=== PATIENT | female | born 1940 | race Caucasian/White ===

== ENCOUNTER 2016-09-09 13:27 | Inpatient (IN) ==
[2016-09-09] MEDS ORDERED: SODIUM CHLORIDE 0.9% 500 ML IV STA (14:13)
[2016-09-09] MEDS ORDERED: ONDANSETRON 4 MG/2 ML VIAL IV STA (14:13)
[2016-09-09 14:21] LABS: Basophils % 0.1 % (0.0-0.8); Eosinophils # 0.1 10*3/uL (0.0-0.87); Hematocrit 35.9 VOL% (35.7-47.0); Hemoglobin 11.6 GM/DL (12.0-16.0); Immature Granulocytes % 0.5 %; Immature Granulocytes Absolute 0.04 #; Lymphocytes # 1.2 10*3/uL (1.4-4.0); Lymphocytes % 14.5 % (21.3-54.2); Mean Corpuscular HGB Conc 32.3 GM/DL (32-36); Mean Corpuscular Hemoglobin 27 PG (27-34); Mean Platelet Volume 10.5 FL (9.6-12.0); Monocytes # 0.5 10*3/uL (0.11-0.8); Monocytes % 5.9 % (1.7-12.7); Neutrophils # 6.4 10*3/uL (1.4-7.4); Platelet Count 322 T/CUMM (130-400); Red Blood Count 4.38 MC/CUMM (3.8-5.5); Red Cell Distribution Width 15.8 % (9.3-17.3); White Blood Count 8.2 T/CUMM (4-12)
[2016-09-09 14:41] LABS: Albumin 3.9 G/DL (3.4-5.0); Bilirubin,Total 0.5 MG/DL (0.2-1.0); Calcium 9.8 MG/DL (8.5-10.1); Magnesium 2.4 MG/DL (1.8-2.4); Osmolality,Calculated 272.2 MOS/KG (273-304); Potassium 4.2 MMOL/L (3.5-5.1)
--- NOTE | 2016-09-09 14:57 | XRay Report ---
XR chest 1V portable Indication: SOB/abdominal pain Comparison: Chest x-ray dated April 28, 2016 Technique: Single frontal view of the chest Findings: Heart size appears within normal limits. Chronic change of the lungs without focal consolidation, pleural effusion, or pneumothorax. Mild bibasilar scarring. Osseous and surrounding soft tissue structures appear grossly unchanged. Surgical clips within the neck base. Diffuse osteopenia. IMPRESSION: No acute cardiopulmonary process demonstrated. PROCEDURE INTERPRETED AT [facility] DEPARTMENT OF RADIOLOGY Final Report Signed by: Dr Jack Francisco
[2016-09-09] MEDS ORDERED: ONDANSETRON 4 MG/2 ML VIAL ONE (14:59)
--- NOTE | 2016-09-09 15:01 | Emergency Department Note ---
Arpita Mahajan Hilary, am scribing for, and in the presence of, Jp Carvalho MD 14:16. Maia Mahajan Phillip K, MD, personally performed the services described in this documentation, ascribed by Yolanda Palm in my presence, and it is both accurate and complete [id number] . Arrival - Arrival Chief Complaint: Abdominal / Flank Pain Stated Complaint: SBO referred by Dr White/has chol bag ED Nursing Triage Note: Abd pain with nausea and vomiting onset x 4 days - pt states that she has a colostomy - per Dr Brown x 6 years ago Mode of Arrival: Ambulatory Limitations: No Limitations Source: Patient, RN Notes Reviewed Time Seen by Provider: 09/09/16 13:56 - History of Present Illness HPI Narrative: Pt is a 75 y/o white female presenting to the ED with c/o abdominal pain which onset 4 days ago. Pt states that she started throwing up 2 days ago with the presence of bile. Pt confirms nausea, vomiting, abdominal pain and cough but denies fever or normal appetite. Pt has a PMHx of colon CA, and HTN. No other complaints or problems stated in the ED. Onset (ago): day(s) Severity: moderate Severity scale (1-10): 4 Quality: cramping Date of Last Menstrual Period: slade Allergies/Adverse Reactions: Allergies Allergy/AdvReac Type Severity Reaction Status Date / Time No Known Allergies Allergy Verified 04/28/16 15:59 Home Medications: Home Medications Medication Instructions Recorded Confirmed Type Levothyroxine Tab [Synthroid Tab] 25 mcg PO DAILY@0700 04/28/16 09/09/16 History Losartan [Cozaar] 50 mg PO QAM 04/28/16 09/09/16 History Omeprazole 20 mg PO QAM 04/28/16 09/09/16 History Solifenacin [Vesicare] 5 mg PO QAM 04/28/16 09/09/16 History levETIRAcetam [Levetiracetam] 250 mg PO QAM 04/28/16 09/09/16 History Fluticasone 50 Mcg Nasal [place] 1 spray BOTH NARES DAILY 09/09/16 09/09/16 History [Flonase Nasal [place]] Levocetirizine Dihydrochloride 5 mg PO QAM 09/09/16 09/09/16 History Review of System - Review of System 12 point system: reviewed and no additional remarkable complaints except as stated - Review of System Constitutional: Absent: fever Respiratory: Present: cough Cardiovascular: Absent: chest pain Gastrointestinal: Present: abdominal pain, nausea, vomiting Medical,Surgical,& Family Hx - Medical History Cardio: History of: Hypertension Respiratory: History of: Bronchitis Gastrointestinal: History of: Gastrointestinal Cancer (colon ca-remission) - Surgical History Abdominal Surgeries: Surgical HX of: Abdominal Surgery (colectomy--colostomy) - Social History Smoking Status: Never smoker Frequency of Alcohol Use: None Type of Drug Use: None Exam Vital Signs: Vital Signs Temperature 98.1 F 09/09/16 13:37 Pulse Rate 109 H 09/09/16 13:37 Respiratory Rate 20 09/09/16 13:37 Blood Pressure 107/87 09/09/16 13:37 O2 Sat by Pulse Oximetry 96 09/09/16 13:37 - General General appearance: alert, in no apparent distress - Head Head exam: Present: atraumatic, normocephalic - Eye Eye exam: Present: normal appearance, PERRL, EOMI - ENT ENT exam: Present: mucous membranes moist, TM's normal bilaterally. Absent: mucous membranes dry - Neck Neck exam: Present: full ROM, trachea midline. Absent: tenderness - Chest Chest inspection: Present: symmetric chest wall rise. Absent: tenderness - Respiratory Respiratory exam: Present: rales (bibasilar rales) - Cardiovascular Cardiovascular exam: Present: normal rhythm, tachycardia, normal heart sounds - Abdominal Exam Abdominal exam: Present: soft, tenderness (generalized pain. Colostomy in rt lower quadrant). Absent: distention, normal bowel sounds (no bowel sounds) - Extremities Exam Extremities exam: Present: full ROM. Absent: tenderness - Back Exam Back exam: Present: full ROM. Absent: tenderness - Neurological Exam Neurological exam: Present: alert, oriented X3, CN II-XII intact. Absent: motor sensory deficit - Psychiatric Psychiatric exam: Present: normal affect, normal mood - Skin Skin exam: Present: warm, dry, intact, normal color. Absent: rash Course Course Narrative: Patient discussed with Dr. Brown who will evaluate in the ED. Results - Labs CBC & BMP: 09/09/16 14:05 09/09/16 14:05 Lab Results: I have reviewed the patients labs Labs: Laboratory Tests 09/09/16 14:05 WBC 8.2 RBC 4.38 Hgb 11.6 L Hct 35.9 MCV 82.0 L Neut % (Auto) 78.0 H Lymph % (Auto) 14.5 L Lymph # (Auto) 1.2 L Laboratory Tests 09/09/16 14:05 Sodium 134 L Potassium 4.2 Chloride 101 Carbon Dioxide 25 BUN 25 H Creatinine 1.60 H Glucose 113 H Calculated Osmolality 272.2 L Total Protein 9.0 H Globulin 5.1 H Albumin/Globulin Ratio 0.7 L - Diagnostic Findings Procedure: Chest x-ray: report reviewed by me (No acute cardiopulmonary process demonstrated.), CT: report reviewed by me (CT abdomen shows small bowel obstruction.) Disposition Clinical Impression: Small bowel obstruction Case discussed with: patient Disposition: Still a Patient Condition: Guarded Additional Instructions: Admit to Dr. Brown .
--- NOTE | 2016-09-09 15:12 | EKG Report ---
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
--- NOTE | 2016-09-09 15:22 | General Surg History&Physical ---
Assessment and Plan - Time spent with patient Time spent with patient: Greater than 30 minutes (1) Small bowel obstruction Status: Acute Assessment and plan: This is most likely secondary to adhesions but could be related to her previous colon cancer. She had an advanced colon cancer that was completely resected in 2011 and as far as I know has not had any adjuvant treatment following this. She does not have any signs to specifically suggest recurrent cancer and this is not obvious on CT scan. I can check a CEA level. I discussed initial nonoperative treatment with nasogastric suction. I do not see evidence of bowel compromise or ischemia at this point. I explained that if she fails to respond to nonoperative treatment and she may require laparotomy. Current Visit: Yes History of Present Illness Chief complaint: Abdominal pain History of present illness: Ms. Hart is a 75 year old female Who for several days has had increasing abdominal pain and distention and nausea and vomiting. This pain is intermittent and cramping and not really localized to one location in her abdomen. She does not know of any aggravating or alleviating factors. She had an abdominal CT scan ordered by Dr. Wells today as an outpatient which showed a small bowel obstruction. She has had extensive abdominal surgery and history of advanced colon cancer resected in 2012 Home Medications Medication Instructions Recorded Confirmed Type Levothyroxine Tab [Synthroid Tab] 25 mcg PO DAILY@0700 04/28/16 09/09/16 History Losartan [Cozaar] 50 mg PO QAM 04/28/16 09/09/16 History Omeprazole 20 mg PO QAM 04/28/16 09/09/16 History Solifenacin [Vesicare] 5 mg PO QAM 04/28/16 09/09/16 History levETIRAcetam [Levetiracetam] 250 mg PO QAM 04/28/16 09/09/16 History Fluticasone 50 Mcg Nasal [place] 1 spray BOTH NARES DAILY 09/09/16 09/09/16 History [Flonase Nasal [place]] Levocetirizine Dihydrochloride 5 mg PO QAM 09/09/16 09/09/16 History Allergies Allergy/AdvReac Type Severity Reaction Status Date / Time No Known Allergies Allergy Verified 04/28/16 15:59 Medical,Surgical,& Family Hx - Medical History Cardio: History of: Hypertension Respiratory: History of: Bronchitis Gastrointestinal: History of: Gastrointestinal Cancer (colon ca-remission) - Surgical History Abdominal Surgeries: Surgical HX of: Abdominal Surgery (colectomy--colostomy) - Family History Family History: noncontributory - Social History Smoking Status: Never smoker Frequency of Alcohol Use: None Type of Drug Use: None Exam - Constitutional Vitals: Period Temp Pulse Resp BP Sys/[place] Pulse Ox Last 24 Hr 98.1 F 109 20 107/87 96 General appearance: no acute distress - Head Head exam: Present: normocephalic - Eye Eye exam: Absent: scleral icterus - ENT Mouth exam: Present: normal voice - Neck Neck exam: Present: trachea midline - Respiratory Respiratory exam: Present: clear to auscultation bilaterally. Absent: accessory muscle use - Cardiovascular Cardiovascular exam: Present: RRR - GI/Abdominal GI/Abdominal exam: Present: distended, hypoactive bowel sounds, soft. Absent: guarding, mass, tenderness, rebound - Extremities Exam Extremities exam: Absent: edema - Neurological Exam Neurological exam: Present: alert, oriented X3 Speech: Present: normal - Skin Skin exam: Present: normal color - Constitutional Constitutional: Absent: chills, fever(s), weight loss - Cardiovascular Cardiovascular: Present: dyspnea. Absent: chest pain at rest, chest pain with activity, dyspnea on exertion, syncope - Respiratory Respiratory: Present: dyspnea. Absent: cough, hemoptysis, dyspnea on exertion - Gastrointestinal Gastrointestinal: Present: abdominal pain, bloating, cramping, nausea, vomiting. Absent: hematemesis, hematochezia, jaundice - Genitourinary Genitourinary: Absent: hematuria - Neurological Neurological: Absent: focal weakness, syncope - Endocrine Endocrine: Absent: polyuria Hematologic/Lymphatic: Absent: easy bleeding, easy bruising Results - Labs CBC & BMP: 09/09/16 14:05 09/09/16 14:05 Lab Results: I have reviewed the past 24 hour labs - Diagnostic Findings Procedure: Chest x-ray: report reviewed by me, CT Abdomen and Pelvis: image reviewed by me, report reviewed by me
[2016-09-09] MEDS ORDERED: ACETAMINOPHEN 325 MG TABLET PO PRN (15:23)
[2016-09-09 15:25] LABS: Apearance,Urine Slightly Hazy (Clear); Bilirubin,Urine Negative (Negative); Blood, Urine Negative (Negative); Glucose,Urine (UA) Negative (Negative); Hyaline Casts,Urine 5 /LPF (0-3); Ketones,Urine 5 mg/dL (Negative); Mucus,Urine Occasional /LPF (Occasional); Nitrite,Urine Negative (Negative); Protein,Urine Negative; RBC,Urine <1 /HPF (0-4); Urine Specific Gravity 1.021 (1.001-1.035); Urine Urobilinogen < 2.0 EU/DL (0.2-1.0); WBC,Urine 2 /HPF (0-6)
[2016-09-09 15:32] LABS: Urine Color Yellow (Yellow)
--- NOTE | 2016-09-09 18:41 | XRay Report ---
Referring Physician: LUZ Brown III Exam: XR chest 1V portable Date: September 09, 2016 at 6:13 PM Reason: Confirm NG tube placement Comparison: Chest one view portable September 09, 2016 at 2:43 PM Findings: A feeding tube is in place with its distal tip within the gastric fundus. There is again scattered atelectasis or scarring at the lung bases, and there are distended loops of small bowel as seen on a CT performed today. Please see that report. No free air is identified. There is degenerative change and kyphoplasty/vertebroplasty change at the spine. Surgical clips are noted at the lower neck. Impression: A feeding tube is in place with its distal tip within the gastric fundus. PROCEDURE INTERPRETED AT [facility] DEPARTMENT OF RADIOLOGY Final Report Signed by: Dr. Leo Pond
[2016-09-09] MEDS: MORPHINE 2 MG/1 ML SYRINGE IV PRN (21:11)
[2016-09-09] MEDS: DEXTROSE 5% LACTATED RINGERS 1,000 ML IV SCH (21:12)
[2016-09-10] MEDS: MORPHINE 2 MG/1 ML SYRINGE IV PRN ×5 (02:21→21:50)
[2016-09-10] MEDS: DEXTROSE 5% LACTATED RINGERS 1,000 ML IV SCH ×4 (06:00→22:37)
--- NOTE | 2016-09-10 06:59 | XRay Report ---
XR chest 1V portable Indication: Confirm NG tube placement Comparison: No relevant comparison Technique: Single frontal view of the chest and upper abdomen specifically for enteric tube placement. Findings: Nonweighted enteric tube tip projects over the proximal stomach. Side-port projects over the distal thoracic esophagus. Consider advancing by at least 4 cm. IMPRESSION: As above. PROCEDURE INTERPRETED AT [facility] DEPARTMENT OF RADIOLOGY Final Report Signed by: Dr Jack Francisco
[2016-09-10 08:53] LABS: Eosinophils # 0.2 10*3/uL (0.0-0.87); Eosinophils % 3.5 % (0.00-10.9); Hematocrit 31.5 VOL% (35.7-47.0); Hemoglobin 10.1 GM/DL (12.0-16.0); Lymphocytes # 0.7 10*3/uL (1.4-4.0); Lymphocytes % 17.4 % (21.3-54.2); Mean Corpuscular HGB Conc 32.1 GM/DL (32-36); Mean Corpuscular Hemoglobin 27 PG (27-34); Mean Corpuscular Volume 83.6 FL (87-102); Monocytes # 0.5 10*3/uL (0.11-0.8); Neutrophils # 2.9 10*3/uL (1.4-7.4); Neutrophils % 67.1 % (38.7-73.9); Platelet Count 236 T/CUMM (130-400); Red Blood Count 3.77 MC/CUMM (3.8-5.5); Red Cell Distribution Width 15.7 % (9.3-17.3); White Blood Count 4.3 T/CUMM (4-12)
[2016-09-10] MEDS: ONDANSETRON 4 MG/2 ML VIAL IV PRN ×2 (08:57→22:28)
[2016-09-10] MEDS ORDERED: levETIRAcetam 250 MG TABLET PO SCH (09:00)
[2016-09-10] MEDS ORDERED: ENOXAPARIN 30 MG/0.3 ML SYRINGE SUBCUT SCH (09:00)
[2016-09-10] MEDS ORDERED: PANTOPRAZOLE 40 MG TABLET PO SCH (09:00)
--- NOTE | 2016-09-10 09:02 | EKG Report ---
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
[2016-09-10 09:12] LABS: Troponin I Only < 0.015 NG/ML (0.00-0.045)
[2016-09-10 09:23] LABS: Band Neutrophils 20 % (0-10); Lymphocytes 20 % (20-55); Segmented Neutrophils 54 % (50-85); Total Cells Counted 100
[2016-09-10 09:24] LABS: Hypochromasia 1+; Microcytosis Slight
[2016-09-10 09:25] LABS: Platelet Estimate Normal
[2016-09-10 09:28] LABS: Albumin 3.1 G/DL (3.4-5.0); Bilirubin,Total 0.4 MG/DL (0.2-1.0); Calcium 8.2 MG/DL (8.5-10.1); Osmolality,Calculated 280.7 MOS/KG (273-304); Potassium 4.3 MMOL/L (3.5-5.1); Total Protein 6.8 G/DL (6.4-8.3)
--- NOTE | 2016-09-10 09:39 | XRay Report ---
Portable chest Date: 09/10/2016 Clinical history: Nasogastric tube placement Comparison: 09/10/2016 Technique: Portable AP sitting chest Findings: Satisfactory advancement of the nasogastric tube into the more distal stomach. Otherwise the chest is stable in appearance. Multilevel kyphoplasty postoperative findings in the neck. Impression: Satisfactory advanced of the nasogastric tube into the more distal stomach. PROCEDURE INTERPRETED AT [facility] DEPARTMENT OF RADIOLOGY Final Report Signed by: Dr. Jessica Adler
[2016-09-10] MEDS: SOLIFENACIN 5 MG TABLET PO SCH (09:51)
[2016-09-10] MEDS: LOSARTAN 50 MG TABLET PO SCH (09:51)
[2016-09-10] MEDS: CETIRIZINE 10 MG TABLET PO SCH (09:51)
[2016-09-10] MEDS: PANTOPRAZOLE 40 MG VIAL IV SCH (09:58)
[2016-09-10] MEDS ORDERED: DEXTROSE 50% 25 GM/50 ML VIAL IV PRN (10:06)
[2016-09-10] MEDS ORDERED: GLUCAGON 1 MG VIAL IM PRN (10:06)
--- NOTE | 2016-09-10 11:06 | Interventional Radiology Rpt ---
IR PICC line insertion, US guide vascular access Indication: TPN requirement. PICC LINE Description: A formal timeout was performed. Maximum sterile barrier technique was used. Sonographic evaluation of the left upper extremity demonstrates patent and compressible brachial vein. The upper arm was prepped and draped in sterile fashion. 3 cc 1% lidocaine was administered subcutaneously. Under sonographic guidance, a micropuncture needle was advanced into the vein. A captured sonographic image documents the position of the needle. Needle was exchanged over a wire for a peel-away sheath. A dual lumen power PICC, cut to 40 cm, was advanced over the wire until the tip was at the RA-SVC junction. The position of the catheter was confirmed with fluoroscopic guidance and an image stored in PACS. The wire and sheath were removed. Both ports of the PICC were aspirated and flushed with heparinized saline. The device was secured with a StatLock. Fluoroscopy: 0.1 minute. Impression: PICC line ready for immediate use. Routine catheter care. PROCEDURE INTERPRETED AT [facility] DEPARTMENT OF RADIOLOGY Final Report Signed by: Ajit Wylie M.D.
--- NOTE | 2016-09-10 13:28 | General Surgery Progress Note ---
Assessment and Plan (1) Small bowel obstruction Status: Acute Assessment and plan: We will continue with conservative management. Patient with family member at bedside with many questions. Dr. Teague reviewed the case and treatment options with the patient encouraging conservative management if at all possible. We will flush the NG tube and monitor, continue IV fluids, continue bowel rest, and pain management. Place PICC and start TPN. Current Visit: Yes (2) Volume depletion Status: Acute Assessment and plan: Patient has been without adequate oral intake for approximately 5 days now. She is receiving IV hydration and we will continue. Renal function is currently preserved. Monitor renal function and urine output. Current Visit: Yes (3) Chest pain at rest Status: Acute Assessment and plan: Suspect this is most likely related to her current GI issues. We will check EKG and cardiac enzymes. Patient has no cardiac history. Current Visit: Yes (4) History of bronchitis Status: Acute Assessment and plan: Patient has documented a history of bronchitis but no documented history of COPD. She is a former smoker. She has history of chronic cough for which she denies any pulmonary diagnoses. Her breath sounds are currently slightly coarse without wheeze. We will schedule duo nebs and follow. Leukocytosis is normal, she is satting well. Chest x-ray is unremarkable at this time. Current Visit: Yes (5) Seizure disorder Status: Acute Assessment and plan: Started Keppra IV. Transition back to PO when appropriate. Current Visit: Yes (6) Hypothyroid Status: Acute Assessment and plan: Hold home med today. Hopefully start tomorrow per NGT. If not, will need to start IV. Current Visit: Yes (7) GERD (gastroesophageal reflux disease) Status: Acute Assessment and plan: Protonix IV Current Visit: Yes (8) Hypertension Status: Acute Assessment and plan: Holding home meds today. Controlled. Restart per NGT hopefully tomorrow. Current Visit: Yes (9) Prophylactic measure Status: Acute Assessment and plan: DVT ppx: SCD and lovenox GI ppx: PPI Dispo: undecided Current Visit: Yes Subjective Patient reports: Present: still having pain, no flatus, no bowel movement, nausea, afebrile (Patient reports feeling unwell this morning that she has abdominal pain and also feels hungry. In addition she complains of substernal chest pressure. NG tube came in overnight and had to be reinserted. Initial chest x-ray demonstrated improper placement and required advancement. The advancement was performed and repeat chest x-ray confirms proper placement. Minimal output and NG tube overnight.) Exam - Constitutional Vitals: Period Temp Pulse Resp BP Sys/[place] Pulse Ox Last 24 Hr 97.6 F-99.2 F 82-105 16-22 110-146/60-80 89-98 General appearance: no acute distress, other (No diaphoresis) - Head Head exam: Present: normal inspection, normocephalic, atraumatic - Eye Eye exam: Absent: conjunctival injection, scleral icterus - Neck Neck exam: Present: trachea midline (scattered coarse breath sounds bilaterally with porlonged expiratory phase; no wheeze) - Cardiovascular Cardiovascular exam: Present: RRR - GI/Abdominal GI/Abdominal exam: Present: hypoactive bowel sounds, tenderness, soft. Absent: distended, firm - Extremities Exam Extremities exam: Absent: calf tenderness, edema - Neurological Exam Neurological exam: Present: alert, oriented X3 Speech: Present: normal - Skin Skin exam: Present: warm Results - Labs CBC & BMP: 09/10/16 08:35 09/10/16 08:35 - EKG EKG results: sinus rhythm EKG shows: tachycardia - Diagnostic Findings Procedure: Chest x-ray: image reviewed by me, report reviewed by me Specialty Discharge - Follow Up or Referrals Follow up with: Silver Brown III., MD [Physician] -
[2016-09-10] MEDS: FAT EMULSION 20% 250 ML IV SCH (14:37)
[2016-09-10] MEDS ORDERED: ALBUTEROL/IPRATROPIUM 3 ML NEB RESP TX ONE (15:55)
[2016-09-10] MEDS ORDERED: TRACE ELEMENTS (5) 1 ML, MULTIVITAMIN INJ 10 ML in AMINO ACIDS/DEXT/LYTES 5-15% 1,000 ML IV SCH (17:00)
[2016-09-10] MEDS ORDERED: DEXTROSE 10% 1,000 ML IV PRN (17:00)
[2016-09-10] MEDS: ENOXAPARIN 40 MG/0.4 ML SYRINGE SUBCUT SCH (17:09)
[2016-09-10] MEDS: INSULIN REGULAR 100 UNIT/ML SUBCUT SCH ×2 (18:38→18:42)
[2016-09-10] MEDS: ALBUTEROL/IPRATROPIUM 3 ML NEB RESP TX SCH ×2 (20:10→23:59)
[2016-09-10] MEDS ORDERED: HYDROmorphone 2 MG/1 ML VIAL IV PRN (22:29)
[2016-09-11] MEDS: INSULIN REGULAR 100 UNIT/ML SUBCUT SCH ×4 (00:16→19:22)
[2016-09-11] MEDS: HYDROmorphone 2 MG/1 ML VIAL IV PRN ×3 (00:17→06:59)
[2016-09-11 06:59] LABS: Eosinophils % 0.9 % (0.00-10.9); Hematocrit 28.6 VOL% (35.7-47.0); Hemoglobin 9.2 GM/DL (12.0-16.0); Immature Granulocytes % 0.6 %; Immature Granulocytes Absolute 0.02 #; Lymphocytes # 0.5 10*3/uL (1.4-4.0); Mean Corpuscular HGB Conc 32.2 GM/DL (32-36); Mean Corpuscular Hemoglobin 27 PG (27-34); Mean Corpuscular Volume 83.6 FL (87-102); Mean Platelet Volume 11.2 FL (9.6-12.0); Monocytes # 0.4 10*3/uL (0.11-0.8); Monocytes % 13.2 % (1.7-12.7); Neutrophils # 2.2 10*3/uL (1.4-7.4); Neutrophils % 68.3 % (38.7-73.9); Platelet Count 190 T/CUMM (130-400); Red Blood Count 3.42 MC/CUMM (3.8-5.5); White Blood Count 3.2 T/CUMM (4-12)
[2016-09-11 07:29] LABS: Magnesium 2.1 MG/DL (1.8-2.4); Osmolality,Calculated 276.8 MOS/KG (273-304); Phosphorous 2.3 MG/DL (2.5-4.9)
[2016-09-11] MEDS: ONDANSETRON 4 MG/2 ML VIAL IV PRN (07:51)
[2016-09-11 07:52] LABS: Band Neutrophils 45 % (0-10); Eosinophils 2 % (0-10); Hypochromasia 2+; Lymphocytes 12 % (20-55); Microcytosis 1+; Platelet Estimate Adequate; Segmented Neutrophils 31 % (50-85); Total Cells Counted 100
[2016-09-11] MEDS: LEVOTHYROXINE 25 MCG TABLET PO SCH (07:59)
[2016-09-11] MEDS: ALBUTEROL/IPRATROPIUM 3 ML NEB RESP TX SCH ×3 (08:01→19:27)
[2016-09-11] MEDS: PANTOPRAZOLE 40 MG VIAL IV SCH (08:36)
--- NOTE | 2016-09-11 09:46 | XRay Report ---
XR chest 1V portable Indication: NG tube placement Comparison: None available Findings: Exam is centered over the lower chest and upper abdomen. NG tube is present with tip overlying the left upper quadrant. Impression: NG tube appears in appropriate x-ray position. PROCEDURE INTERPRETED AT [facility] DEPARTMENT OF RADIOLOGY Final Report Signed by: Dr. Giovanny Nino
[2016-09-11] MEDS: LOSARTAN 50 MG TABLET PO SCH (10:07)
[2016-09-11] MEDS: CETIRIZINE 10 MG TABLET PO SCH (10:08)
[2016-09-11] MEDS: SOLIFENACIN 5 MG TABLET PO SCH (10:08)
--- NOTE | 2016-09-11 13:42 | General Surgery Progress Note ---
Assessment and Plan (1) Small bowel obstruction Status: Acute Assessment and plan: Impression: Small bowel obstruction Plan: Patient has not made any improvement. She says she is miserable and wants to proceed with laparotomy. I discussed the procedure and the possibilities that we could encounter. Risk of the procedure including bleeding , infection, damage to surrounding structures, need for further surgery, possible bowel resection, possible enterotomy were all discussed in detail and she wants to proceed. Current Visit: Yes Subjective Narrative: Patient is begging me for an operation. She has pulled out her NG tube overnight. She has continued to vomit feculent appearing fluid. Yesterday the NG tube was in place and I flushed it several times but it continues to clogged due to the thick nature of the feculent fluid and she threw up about 5 times yesterday around the tube. She says she is not feeling any better at all and continues to decline. Exam - Constitutional Vitals: Period Temp Pulse Resp BP Sys/[place] Pulse Ox Last 24 Hr 98.1 F-99.6 F 73-116 16-20 120-152/72-89 90-99 General appearance: no acute distress - Head Head exam: Present: normocephalic - Neck Neck exam: Present: normal inspection - Respiratory Respiratory exam: Present: clear to auscultation bilaterally - Cardiovascular Cardiovascular exam: Present: RRR - GI/Abdominal GI/Abdominal exam: Present: soft (Mild to moderate tenderness diffusely but no peritoneal signs. Stoma with no output of air or stool.) - Extremities Exam Extremities exam: Present: normal inspection - Back Exam Back exam: Present: normal inspection - Neurological Exam Neurological exam: Present: alert Speech: Present: normal - Skin Skin exam: Present: normal color Results - Labs CBC & BMP: 09/11/16 05:48 09/11/16 05:48 Lab Results: I have reviewed the past 24 hour labs Specialty Discharge - Follow Up or Referrals Follow up with: Silver Brown III., MD [Physician] -
[2016-09-11] MEDS ORDERED: ALBUMIN 5% 12.5 GM/250 ML VIAL IV ONE ×2 (15:06→16:50)
[2016-09-11] MEDS ORDERED: DEXAMETHASONE 10 MG/1 ML VIAL ONE (15:06)
[2016-09-11] MEDS ORDERED: SUCCINYLCHOLINE 200 MG/10 ML VIAL ONE ×2 (15:06→18:15)
[2016-09-11] MEDS ORDERED: ONDANSETRON 4 MG/2 ML VIAL ONE (15:06)
[2016-09-11] MEDS ORDERED: PHENYLEPHRINE 1 MG/10 ML SYRINGE IV ONE (15:06)
[2016-09-11] MEDS ORDERED: GLYCOPYRROLATE 0.4 MG/2 ML VIAL ONE (15:06)
[2016-09-11] MEDS ORDERED: ROCURONIUM 100 MG/10 ML VIAL IV ONE (15:06)
[2016-09-11] MEDS ORDERED: LIDOCAINE 2% 5 ML VIAL ONE (15:06)
[2016-09-11 16:42] LABS: Apearance,Urine CLEAR (Clear); Bilirubin,Urine Negative (Negative); Blood, Urine Negative (Negative); Glucose,Urine (UA) Negative (Negative); Ketones,Urine Negative (Negative); Mucus,Urine Occasional /LPF (Occasional); Nitrite,Urine Negative (Negative); Protein,Urine 30 MG/DL; RBC,Urine 2 /HPF (0-4); Squamous Epithelial Cell,Urine Occasional /HPF (0-10); Urine Color Amber (Yellow); Urine Specific Gravity 1.021 (1.001-1.035); Urine Urobilinogen < 2.0 EU/DL (0.2-1.0); WBC,Urine 2 /HPF (0-6)
[2016-09-11] MEDS ORDERED: LACTATED RINGERS 1,000 ML IV ONE ×3 (16:50→23:08)
[2016-09-11] MEDS ORDERED: SEVOFLURANE 1 UNIT/15 MINUTE INH ONE (16:50)
[2016-09-11] MEDS ORDERED: MIDAZOLAM 2 MG/2 ML VIAL ONE (16:50)
[2016-09-11] MEDS ORDERED: SODIUM CHLORIDE 0.9% 500 ML IV ONE (16:51)
[2016-09-11] MEDS ORDERED: TRACE ELEMENTS (5) 1 ML, MULTIVITAMIN INJ 10 ML in AMINO ACIDS/DEXT/LYTES 5-15% 2,000 ML IV SCH (17:00)
[2016-09-11] MEDS ORDERED: NALOXONE 0.4 MG/ML VIAL IV PRN (17:06)
[2016-09-11] MEDS: ENOXAPARIN 40 MG/0.4 ML SYRINGE SUBCUT SCH (17:18)
--- NOTE | 2016-09-11 17:22 | Operative Note ---
Date of procedure: 09/11/16 Pre-op diagnosis: Small bowel obstruction Post-op diagnosis: same (Secondary to adhesive band, also small reducible umbilical hernia) Procedure: Procedure performed: #1 exploratory laparotomy with lysis of adhesions #2 repair of reducible umbilical hernia #3 modifier 22 Procedure in detail: After informed consent was obtained, patient was taken operating suite and laid supine on the operating table. After general anesthesia was induced the abdomen was prepped and draped in usual sterile fashion. The colostomy was excluded from the sterile area with a Tegaderm. After procedural pause lower midline laparotomy incision made incorporating the previous scar and dissection carried down through the soft tissue. The incision was extended just above the umbilicus. The fascia was divided at the superior portion of the wound and the abdominal cavity was entered. I continue the fascial dissection inferiorly and identified adhesions to the anterior abdominal wall. There was also a reducible umbilical hernia of approximately 1 cm in diameter. The sac was dissected free from surrounding tissue and removed back at healthy fascial edges. The sac was passed off the field. I continued dissection inferiorly releasing the adhesive bands tethering the small bowel to the anterior abdominal wall. This took careful tedious dissection to to avoid enterotomy. Once all these bands were lysed the fascial incision could be extended the length of the wound and the abdominal cavity was entered. There was loops of small intestine appeared very dilated and mildly congested. I began to run the small bowel from the ligament of Treitz distally and encountered the transition point at an adhesive band. This band was tethering the bowel. The adhesion was ligated and succus easily passed through the transition point. Distal to this the bowel was all decompressed and it was run all the way to the ileocecal valve. Colon appeared normal and there was a very small parastomal hernia with no contents in the sac. Palpation in the pelvis revealed no adenopathy or tumor. I again ran the small bowel from ligament of Treitz to the ileocecal valve there was no further obstruction and no enterotomy or any serosal tears identified. The congestion appeared much better. All bowel appeared viable. There was good hemostasis. The abdomen was thoroughly irrigated and suction and NG tube was confirmed in the stomach. Midline fascia closed with #1 running looped PDS incorporating the area of the umbilical hernia getting good fascial closure. The wound was irrigated and suctioned and the incision closed with melquiades. Sterile dressing and ostomy bag were applied. Patient was taken to recovery room in stable condition. All lap and needle counts were correct at the end of the case. I am adding modifier 22 for the extensive time and effort required to be on a normal procedure of this type. This was due to the adhesions requiring tedious dissection which easily doubled the operative time. Anesthesia: SILVINOA Surgeon / Physician: Skyler Teague Estimated blood loss: other (Less than 25 cc) Specimens: none sent Condition: stable Disposition: PACU Results - Labs CBC & BMP: 09/11/16 05:48 09/11/16 05:48 Discharge Plan - Discharge Medications No Action Solifenacin [Vesicare] 5 mg PO QAM Levothyroxine Tab [Synthroid Tab] 25 mcg PO DAILY@0700 Levocetirizine Dihydrochloride 5 mg PO QAM Omeprazole 20 mg PO QAM levETIRAcetam [Levetiracetam] 250 mg PO QAM Losartan [Cozaar] 50 mg PO QAM Fluticasone 50 Mcg Nasal [place] [Flonase Nasal [place]] 1 spray BOTH NARES DAILY - Follow Up or Referral Follow Up: Silver Brown III., MD [Physician] - - Forms/Instructions Instructions: Bowel Obstruction (DC)
[2016-09-11] MEDS ORDERED: HYDROmorphone PCA 30 MG/30 ML SYRINGE IV SCH (17:30)
[2016-09-11] MEDS ORDERED: HYDROmorphone PCA 30 MG/30 ML SYRINGE IV ONE (17:33)
[2016-09-11] MEDS ORDERED: PROPOFOL 1,000 MG/100 ML BOTTLE IV ONE (18:00)
[2016-09-11] MEDS ORDERED: LIDOCAINE 100 MG/5 ML SYRINGE ONE (18:04)
[2016-09-11] MEDS ORDERED: LIDOCAINE 50 MG/5 ML SYRINGE ONE (18:08)
[2016-09-11] MEDS ORDERED: LIDOCAINE 50 MG/5 ML SYRINGE IV ONE (18:10)
[2016-09-11] MEDS: FAT EMULSION 20% 250 ML IV SCH (18:49)
[2016-09-11 18:50] LABS: ABG HCO3 24.5 MMOL/L (20-26); ABG Oxygen Saturation 97.2 % (95-100); ABG PCO2 56.3 MM HG (35-48); ABG PH 7.256 (7.35-7.45); ABG PO2 115.3 MM HG (80-95); ABG TCO2 26.2 MMOL/L (23-27); Allen Test Positive; Pt O2 Delivery Device Ventilator
[2016-09-11] MEDS: PROPOFOL 1,000 MG/100 ML BOTTLE IV SCH ×2 (18:54→21:32)
[2016-09-11] MEDS: DEXTROSE 5% LACTATED RINGERS 1,000 ML IV SCH ×3 (18:55→21:35)
--- NOTE | 2016-09-11 19:17 | Anesthesia Procedures ---
Anesthesia Procedures - Intubation Time out performed intubation: Yes (1808) Laryngoscope: Oracio ET Tube Size: 7 Tube Secured Depth (cm): 20 Tube Secured Location: lips Tube Placement Confirmation: visualized tube passing through cords, equal breath sounds bilaterally, no breath sounds over epigastrium, confirmation by capnometry, confirmation detector color change Patient tolerated procedure intubation: well Intubation Complications: none (Pt was intubated at 18:10 with 75 mg of Lidocaine followed with 100 mg of Propofol. For complete sequence of events during pt's PACU stay till Pt's transfer to ICU, please read EXPLORATION MANAGER Danii Vidal' s note. After transfer to ICU, Dr. Asencio talked to pt's family waiting in front of ICU. )
--- NOTE | 2016-09-11 19:26 | Pulmonology Consult Note ---
Assessment and Plan (1) Respiratory failure Status: Acute Assessment and plan: 75-year-old female with small bowel obstruction requiring surgery for lysis of adhesion who was extubated postop but quickly required reintubation due to hypoxia. Etiology for requirement of reintubation is concerning for aspiration event versus prolonged anesthesia resulting in hypoventilation. Will monitor for development of aspiration pneumonia as below and monitor neuro status with daily sedation breaks. -Vent settings: AC/VC, tidal volume 500, respiratory rate 20, FiO2 60%, PEEP 5 -Vent goals: Sats greater than 90%, plateau pressure <30, pH 7.35-7.45 -Titrate FiO2 as allowed to maintain sats greater than 90% -Chest x-ray and ABG in the a.m. (and one hour after vent changes) -Propofol for sedation, goal RASS 0 to -1 -Awakening trial in the morning -Prophylaxis: PPI, DVT per surgery, head of bed greater than 35 and chlorhexidine mouthwash -Continue nebulized treatments Current Visit: Yes (2) Aspiration into airway Status: Acute Assessment and plan: I have significant concern for patient having had an aspiration event around the time of reintubation given the circumstances of the event, the appearance of the right hilar/lower lobe on chest x-ray, and the purulent secretions coming from ET tube. At this time she has no evidence of aspiration pneumonia as she remains afebrile and it is too soon for expected development of aspiration pneumonia, but this will need to be monitored for. If patient develops fever, increasing white count, increasing oxygen requirement/ infiltrate on chest x-ray, then I would recommend Zosyn for coverage of aspiration pneumonia. Recommend daily chest x-rays and CBC. Current Visit: Yes Qualifiers: Encounter type: initial encounter Qualified Code(s): T17.908A - Unspecified foreign body in respiratory tract, part unspecified causing other injury, initial encounter (3) Small bowel obstruction Status: Acute Assessment and plan: Postop lysis of adhesions for small bowel obstruction. Defer management to surgery Current Visit: Yes History of Present Illness Chief complaint: Ventilator management History of present illness: Ms. Hart is a 75 year old female admitted for small bowel obstruction who underwent laparotomy today for lysis of adhesions. Postop patient was extubated but then reportedly required quick reintubation due to hypoxia. Pulmonary is now consulted for ventilator management. Reportedly patient has no underlying pulmonary conditions. The operation itself was prolonged but without acute complications. There is question of aspiration event in the immediate postop period giovana- reintubation. Home Medications Medication Instructions Recorded Confirmed Type Levothyroxine Tab [Synthroid Tab] 25 mcg PO DAILY@0700 04/28/16 09/09/16 History Losartan [Cozaar] 50 mg PO QAM 04/28/16 09/09/16 History Omeprazole 20 mg PO QAM 04/28/16 09/09/16 History Solifenacin [Vesicare] 5 mg PO QAM 04/28/16 09/09/16 History levETIRAcetam [Levetiracetam] 250 mg PO QAM 04/28/16 09/09/16 History Fluticasone 50 Mcg Nasal [place] 1 spray BOTH NARES DAILY 09/09/16 09/09/16 History [Flonase Nasal [place]] Levocetirizine Dihydrochloride 5 mg PO QAM 09/09/16 09/09/16 History Allergies Allergy/AdvReac Type Severity Reaction Status Date / Time No Known Allergies Allergy Verified 04/28/16 15:59 ROS unobtainable: due to endotracheal tube Exam (Pulmonay) H&P - Constitutional Vitals: Period Temp Pulse Resp BP Sys/[place] Pulse Ox Last 24 Hr 97.0 F-99.1 F 73-133 10-27 95-207/58-116 89-100 General appearance: normal weight - Head Head exam: Present: normal inspection - Eye Pupils: Present: ENRIKE - Neck Neck exam: Present: normal inspection - Respiratory Respiratory exam: Present: rhonchi (Diffuse bilaterally). Absent: rales, wheezes - Cardiovascular Cardiovascular exam: Present: regular rate and rhythm - GI/Abdominal GI/Abdominal exam: Present: hypoactive bowel sounds, soft. Absent: guarding - Extremities Exam Extremities exam: Present: normal inspection - Neurological Exam Neurological exam: Present: other (Sedated on the ventilator) - Skin Skin exam: Present: warm, dry Medical,Surgical,& Family Hx - Medical History Cardio: History of: Hypertension Psychological: History of: Depression Neurology: History of: Seizures HEENT: History of: Eye Problem (glasses) Respiratory: History of: Bronchitis Genitourinary: History of: Recurring Urinary Tract Infections Gastrointestinal: History of: Bowel Obstruction (small bowel obstruction), GERD , Gastrointestinal Cancer (colon ca-remission) Other: History of: Cancer (colon cancer) - Surgical History HEENT Surgeries: Surgical HX of: Eye Surgery (cataract surgery two years ago), Thyroid Surgery (glands removed) Abdominal Surgeries: Surgical HX of: Abdominal Surgery (colectomy--colostomy) Reproductive Surgeries: Surgical HX of;: Tubal Ligation - Family History Family History: Reports;: Family Cancer (father and sister), Family Hypertension (mother) - Social History Smoking Status: Never smoker Frequency of Alcohol Use: None Type of Drug Use: None Results - Labs CBC & BMP: 09/11/16 05:48 09/11/16 05:48 - Diagnostic Findings Procedure: Chest x-ray: image reviewed by me, report reviewed by me (Right hilar fullness concerning for aspiration; ET tube in satisfactory position; left subclavian central venous catheter in good position.) Specialty Discharge - Follow Up or Referrals Follow up with: Silver Brown III., MD [Physician] -
[2016-09-11] MEDS ORDERED: PROPOFOL 1,000 MG/100 ML BOTTLE IV SCH (19:30)
--- NOTE | 2016-09-11 19:30 | XRay Report ---
XR chest 1V portable Indication: Intubation Comparison: 10 Sep 2016 Findings: The heart and mediastinum are stable in size and configuration. Endotracheal tube has been placed with tip just beyond clavicles. Left arm catheters been added in tip overlies superior vena cava. NG tube is unchanged in position. The pulmonary vascularity is increased with bilateral increased interstitial lung density. No other lung infiltrates, effusions, pneumothorax or other abnormality is demonstrated. Impression: Findings suggest cardiac decompensation. Support structures appear within normal limits. PROCEDURE INTERPRETED AT [facility] DEPARTMENT OF RADIOLOGY Final Report Signed by: Dr. Giovanny Nino
[2016-09-11 19:42] LABS: Hematocrit 32.3 VOL% (35.7-47.0); Hemoglobin 10.2 GM/DL (12.0-16.0)
[2016-09-11] MEDS ORDERED: HYDROmorphone 2 MG/1 ML VIAL IV PRN (20:07)
[2016-09-11] MEDS ORDERED: KETOROLAC 30 MG/1 ML VIAL IV ONE (20:08)
[2016-09-11 20:26] LABS: ABG Base Excess -4.9 MMOL/L (-2.5-2.5); ABG HCO3 22.6 MMOL/L (20-26); ABG Oxygen Saturation 93.1 % (95-100); ABG PCO2 53.6 MM HG (35-48); ABG PH 7.242 (7.35-7.45); ABG PO2 78.5 MM HG (80-95); ABG TCO2 24.2 MMOL/L (23-27); Allen Test Positive; Pt O2 Delivery Device Ventilator
[2016-09-11] MEDS ORDERED: fentaNYL INJ 1,250 MCG in SODIUM CHLORIDE 0.9% 225 ML IV SCH (21:00)
[2016-09-11] MEDS: PHENYLEPHRINE DRIP 40 MG/250 ML PREMIX IV SCH ×2 (21:24→21:51)
[2016-09-11 23:28] LABS: Hematocrit 32.8 VOL% (35.7-47.0); Hemoglobin 10.3 GM/DL (12.0-16.0)
[2016-09-11 23:52] LABS: Troponin I Only 0.018 NG/ML (0.00-0.045)
[2016-09-12] MEDS ORDERED: ALBUMIN 25% 50 GM in PREMIX 1 EACH IV SCH
[2016-09-12] MEDS: ALBUTEROL/IPRATROPIUM 3 ML NEB RESP TX SCH ×2 (00:08→07:11)
[2016-09-12] MEDS ORDERED: NOREPINEPHRINE 4 MG/4 ML VIAL IV ONE ×2 (00:18→10:27)
[2016-09-12] MEDS ORDERED: LACTATED RINGERS 1,000 ML IV ONE ×4 (00:46→09:43)
[2016-09-12] MEDS ORDERED: MIDAZOLAM 100 MG in SODIUM CHLORIDE 0.9% 80 ML IV SCH (01:00)
[2016-09-12] MEDS: NOREPINEPHRINE 8 MG in SODIUM CHLORIDE 0.9% 242 ML IV SCH ×2 (01:10→10:29)
--- NOTE | 2016-09-12 01:29 | Event Note ---
Status post ex lap with lysis of adhesion. She required reintubation postoperatively. She was initially doing well and over the course of the evening has declined. Neurologically she opens her eyes spontaneously and tracks slightly but does not follow commands. She is currently sedated with Versed. Propofol was discontinued due to hypotension. Her lungs are clear to auscultation bilaterally. Postoperative chest x-ray showed some changes consistent with possible cardiac decompensation. She appears to be fighting the vent on assist control with peak pressures in the 60s. A trial of SIMV and CPAP showed improvement with this and help with her tachycardia as well. We will leave her on her current settings of CPAP for now and check ABGs. Appreciate pulmonary consultation. I agree with the probability of an aspiration event. They are suctioning some yellow whitish fluid from the ET tube. I am going to go ahead and start the Zosyn. He is currently in sinus tachycardia in the 130s. Systolic blood pressure in the 140s. She became more hypotensive and tachycardic throughout the evening and we have given IV fluid boluses. She was initially started on Tone- Synephrine and it was maxed out at one time and Levophed was started. We have been able to wean both of them slightly and the Tone-Synephrine is currently at 120/min and the Levophed is down to 10 mics per minute. EKG showed sinus tachycardia. Troponins were negative. H&H is stable and higher than preoperatively indicating some volume depletion. We have given the fluid boluses and will recheck labs. Abdomen is soft and there is no increase in distention. The incision has some slight serosanguineous drainage at the upper portion. In addition she is developed a slight bulge at the upper portion and I suspect that with her fighting the vent she has pulled through the top stitch and may have a little bit of dehiscence. It is easily pushed back in. Urine output decreased to 20 an hour for the last several hours but after the IV fluid boluses given it appears less concentrated. We will hold her Toradol for now. We will continue with volume support. This is challenging given the possibility of cardiac decompensation as well as respiratory failure. The patient was previously a DO NOT RESUSCITATE for her previous procedures and I have updated the family and discuss this with them. They want to make her a DO NOT RESUSCITATE at this time. They feel that that is what she would want.
[2016-09-12 01:34] LABS: ABG Oxygen Saturation 94.7 % (95-100); ABG PCO2 57.9 MM HG (35-48); ABG PO2 87.1 MM HG (80-95); ABG TCO2 23.8 MMOL/L (23-27); Allen Test Positive; Pt O2 Delivery Device Ventilator
[2016-09-12 01:41] LABS: ABG PH 7.198 (7.35-7.45)
[2016-09-12] MEDS ORDERED: SODIUM BICARBONATE 50 MEQ/50 ML VIAL IV ONE ×4 (01:53→08:40)
[2016-09-12] MEDS ORDERED: PIPERACILLIN/TAZOBACTAM 3,375 MG in SODIUM CHLORIDE 0.9% 100 ML IV SCH (02:00)
[2016-09-12] MEDS: PHENYLEPHRINE DRIP 40 MG/250 ML PREMIX IV SCH (02:01)
[2016-09-12 02:21] LABS: Hematocrit 26.9 VOL% (35.7-47.0); Hemoglobin 8.3 GM/DL (12.0-16.0); Immature Granulocytes % 8.4 %; Immature Granulocytes Absolute 0.22 #; Lymphocytes # 0.4 10*3/uL (1.4-4.0); Mean Corpuscular HGB Conc 30.9 GM/DL (32-36); Mean Corpuscular Hemoglobin 27 PG (27-34); Mean Corpuscular Volume 87.6 FL (87-102); Mean Platelet Volume 10.3 FL (9.6-12.0); Monocytes # 0.1 10*3/uL (0.11-0.8); Monocytes % 3.1 % (1.7-12.7); NRBC # 0.03 10*3/uL; Neutrophils # 1.9 10*3/uL (1.4-7.4); Neutrophils % 72.5 % (38.7-73.9); Platelet Count 160 T/CUMM (130-400); Red Blood Count 3.07 MC/CUMM (3.8-5.5); White Blood Count 2.6 T/CUMM (4-12)
[2016-09-12 02:38] LABS: Calcium 7.2 MG/DL (8.5-10.1); Magnesium 1.4 MG/DL (1.8-2.4); Osmolality,Calculated 280.5 MOS/KG (273-304); Potassium 3.5 MMOL/L (3.5-5.1)
[2016-09-12] MEDS: INSULIN REGULAR 100 UNIT/ML SUBCUT SCH ×2 (02:51→07:23)
[2016-09-12] MEDS ORDERED: ALBUMIN 25% 50 GM in PREMIX 1 EACH IV ONE (02:58)
[2016-09-12] MEDS ORDERED: MAGNESIUM SULF RIDER 2 GM in PREMIX 1 EACH IV PRN (03:00)
[2016-09-12] MEDS ORDERED: MAGNESIUM SULF RIDER 4 GM in PREMIX 1 EACH IV PRN (03:00)
[2016-09-12] MEDS ORDERED: KETOROLAC 15 MG/1 ML VIAL IV SCH (03:00)
[2016-09-12] MEDS ORDERED: MAGNESIUM SULF RIDER 100 ML IV ONE (03:06)
[2016-09-12] MEDS ORDERED: PHENYLEPHRINE INJ 160 MG in SODIUM CHLORIDE 0.9% 234 ML IV SCH (03:30)
[2016-09-12 04:15] LABS: Band Neutrophils 36 % (0-10); Lymphocytes 15 % (20-55); Metamyelocytes 4 %; Myelocytes 9 %; Segmented Neutrophils 28 % (50-85); Total Cells Counted 100
[2016-09-12 04:16] LABS: Anisocytosis 1+; Platelet Estimate Adequate
[2016-09-12 06:46] LABS: ABG Base Excess -6.2 MMOL/L (-2.5-2.5); ABG HCO3 19.1 MMOL/L (20-26); ABG Oxygen Saturation 84.8 % (95-100); ABG PCO2 48.3 MM HG (35-48); ABG PH 7.244 (7.35-7.45); ABG PO2 55.2 MM HG (80-95); ABG TCO2 20.1 MMOL/L (23-27); Allen Test Positive; Pt O2 Delivery Device Ventilator
[2016-09-12] MEDS ORDERED: CISATRACURIUM 200 MG in SODIUM CHLORIDE 0.9% 100 ML IV SCH (07:00)
--- NOTE | 2016-09-12 07:29 | EKG Report ---
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
[2016-09-12] MEDS ORDERED: SODIUM CHLORIDE 0.9% 250 ML IV PRN (08:31)
--- NOTE | 2016-09-12 08:31 | Pulmonology Progress Note ---
Pulmonary - PN: Subj Interval history: 75-year-old female admitted with small bowel obstruction requiring surgical intervention. Pulmonary was consulted yesterday evening after patient required emergent reintubation postop for hypoxia. Overnight patient has had significant deterioration with hemodynamic instability requiring initiation of 2 vasopressors, and worsening in her oxygenation with chest x-ray this morning showing development of ARDS. Patient was started on Zosyn overnight and this morning's labs show new leukopenia. She has also had suboptimal urine output despite aggressive fluid resuscitation. She remains neurologically intact and has required Versed continuous drip to maintain comfort. Exam (Progress Note) - Constitutional Vitals: Period Temp Pulse Resp BP Sys/[place] Pulse Ox Last 24 Hr 97.0 F-99.6 F 99-144 10-28 63-207/43-116 80-100 General appearance: normal weight - Head Head exam: Present: normal inspection, normocephalic, atraumatic - Eye Eye exam: Present: EOMI Pupils: Present: ENRIKE - Neck Neck exam: Present: normal inspection - Respiratory Respiratory exam: Present: rales, rhonchi. Absent: accessory muscle use, wheezes - Cardiovascular Cardiovascular exam: Present: tachycardia. Absent: systolic murmur - GI/Abdominal GI/Abdominal exam: Present: firm, hypoactive bowel sounds. Absent: guarding, tenderness - Extremities Exam Extremities exam: Present: edema - Neurological Exam Neurological exam: Present: other - Skin Skin exam: Present: warm, dry Results - Labs CBC & BMP: 09/12/16 02:16 09/12/16 02:16 - EKG EKG shows: tachycardia (Sinus) - Diagnostic Findings Procedure: Chest x-ray: image reviewed by me (Interval development of bilateral diffuse patchy infiltrates consistent with ARDS) Assessment and Plan (1) ARDS (adult respiratory distress syndrome) Status: Acute Assessment and plan: Evaluation this morning shows significant worsening in oxygenation with P: F ratio <100 and chest x-ray shows interval acute development of bilateral patchy diffuse opacities, consistent with development of severe ARDS. Etiology is likely aspiration perioperatively. Other considerations include cardiogenic pulmonary edema, which needs to be further evaluated for with an echocardiogram. Given the severity of her ARDS, recommend initiation of paralytics and would consider pronating if no improvement with paralytics. Recommendations are as follows: -Echocardiogram -Nimbex titrated by [id number] -Deep sedation with RASS goal -3 to -4 while on paralytics -Ventilator goals: PH >7.2 (allow permissive hypercapnia), plateau pressure less than 30, oxygen saturation 88-95%, tidal volume 6-8 mL/KG -Minimize further IV fluid administration -Chest x-ray and ABG every morning -Prophylaxis: PPI, DVT per surgery, head of bed greater than 35 and chlorhexidine mouthwash -Continue nebulized treatments Current Visit: Yes (2) Respiratory failure Status: Acute Assessment and plan: As above Current Visit: Yes (3) Aspiration into airway Status: Acute Assessment and plan: Likely the etiology for requirement of reintubation and subsequent worsening overnight with development of severe ARDS. Agree with initiation of Zosyn given her significant worsening overnight. Will increase dosing to cover for hospital-acquired organisms given her current stable renal function. Current Visit: Yes Qualifiers: Encounter type: initial encounter Qualified Code(s): T17.908A - Unspecified foreign body in respiratory tract, part unspecified causing other injury, initial encounter (4) Shock circulatory Status: Acute Assessment and plan: Hemodynamic instability overnight requiring initiation of 2 vasopressors. Likely distributive shock related to ARDS; though sepsis and cardiogenic shock are also strong considerations. Agree with initiation of broad antibiotics and would consider addition of vancomycin. Will order cultures and echo for further evaluation, and will hold blood pressure medications while requiring vasopressors. Current Visit: Yes (5) Small bowel obstruction Status: Acute Assessment and plan: Postop lysis of adhesions for small bowel obstruction. Defer management to surgery Current Visit: Yes (6) Leukopenia Status: Acute Assessment and plan: CBC this morning shows interval decrease in white blood cell count concerning for development of sepsis. Agree with initiation of Zosyn and would consider addition of vancomycin for broad coverage of hospital-acquired organisms. Current Visit: Yes (7) Anemia Status: Acute Assessment and plan: Labs this morning show an interval decline in hemoglobin. Likely related to aggressive volume resuscitation overnight. No current evidence of active bleeding. Continue to trend CBC. Current Visit: Yes Specialty Discharge - Follow Up or Referrals Follow up with: Silver Brown III., MD [Physician] -
[2016-09-12] MEDS ORDERED: CALCIUM GLUCONATE 1,000 MG/10 ML VIAL IV ONE (08:37)
[2016-09-12] MEDS: LOSARTAN 50 MG TABLET PO SCH (08:50)
[2016-09-12] MEDS: CETIRIZINE 10 MG TABLET PO SCH (08:50)
[2016-09-12] MEDS: LEVOTHYROXINE 25 MCG TABLET PO SCH (08:50)
[2016-09-12] MEDS: SOLIFENACIN 5 MG TABLET PO SCH (08:50)
[2016-09-12] MEDS: DEXTROSE 5% LACTATED RINGERS 1,000 ML IV SCH (08:54)
--- NOTE | 2016-09-12 08:54 | XRay Report ---
XR chest 1V portable Indication: Intubation Comparison: 11 Sep 2016 Findings: The heart and mediastinum are stable in size and configuration. Lines and tubes are unchanged in position. The pulmonary vascularity is increased with bilateral increased interstitial lung density. No other lung infiltrates, effusions, pneumothorax or other abnormality is demonstrated. Impression: Findings suggest increasing cardiac decompensation. PROCEDURE INTERPRETED AT [facility] DEPARTMENT OF RADIOLOGY Final Report Signed by: Dr. Giovanny Nino
[2016-09-12] MEDS ORDERED: CALCIUM GLUCONATE 2,000 MG in SODIUM CHLORIDE 0.9% 100 ML IV ONE (09:30)
[2016-09-12] MEDS ORDERED: CISATRACURIUM 10 MG/5 ML VIAL IV ONE (09:31)
[2016-09-12] MEDS: PANTOPRAZOLE 40 MG VIAL IV SCH (09:51)
[2016-09-12] MEDS ORDERED: PIPERACILLIN/TAZOBACTAM 4,500 MG in SODIUM CHLORIDE 0.9% 100 ML IV SCH (10:00)
--- NOTE | 2016-09-12 10:01 | ECHO Report ---
Mary Hart Exam Date: 09/12/2016 07:53 Referring Physician: Technologist: Monique Ley Age: 75 Ht (in): 62 Wt (lb): 116 Gender: F Exam Location: [facility] Echo Indications: small bowel obstruction, volume depletion, resp. failure, HTN, GERD, hypothyroid BP: 82 / 55 HR: 122 Rhythm: Sinus tachycardia Technical Quality: Technically difficult study IMPRESSIONS 1. This is a technically very difficult limited study. The patient is in sinus tachycardia. 2. The left ventricle grossly normal size and systolic function with ejection fraction at worst 50-55%. There may be some minimal left ventricular hypertrophy. 3. Other cardiac chambers are normal size and function. 4. There is no gross valvular abnormalities noted. 5. There is no gross evidence of elevated right-sided pressures. MEASUREMENTS (Male / Female) Normal Values 2D ECHO LV Diastolic Diameter PLAX 3.4 cm 4.2 - 5.9 / 3.9 - 5.3 cm LV Systolic Diameter PLAX 2.4 cm LV Fractional Shortening PLAX 30.6 % IVS Diastolic Thickness 1.2 cm 0.6 - 1.0 / 0.6 - 0.9 cm LVPW Diastolic Thickness 1.0 cm 0.6 - 1.0 / 0.6 - 0.9 cm RV Internal Dim ED PLAX 2.4 cm Aortic Root Diameter 2.3 cm LA Systolic Diameter LX 2.9 cm 3.0 - 4.0 / 2.7 - 3.8 cm DOPPLER TR Peak Velocity 252.0 cm/s TR Peak Gradient 25.4 mmHg FINDINGS Left Ventricle Patient's left ventricle appears grossly normal size and normal systolic function ejection fraction at least around 50-55%. It worse there may be some minimal to mild concentric left ventricular hypertrophy. Right Ventricle Normal right ventricular size and systolic function. Right Atrium Normal right atrial size. Left Atrium Normal left atrial size. Mitral Valve Mitral valve appears to be grossly normal anatomically function without any real significant Doppler abnormalities. Aortic Valve Aortic valve not well visualized but appears to have normal motion. On Doppler there is no gross evidence for any significant stenosis or insufficiency. Tricuspid Valve Patient is tricuspid valve is not well visualized but grossly appear to have normal motion. There is trace to mild insufficiency at worst. By Doppler is no gross evidence for elevated right-sided pressures. Pulmonic Valve Pulmonic valve not well visualized. Pericardium No pericardial effusion. Aorta Normal size aortic root and proximal ascending aorta. Ajit Acosta MD (Electronically Signed) Final Date: 12 Sep 2016 09:59
[2016-09-12 11:28] VITALS: BP 61/43
--- NOTE | 2016-09-12 11:34 | Event Note ---
Status post exploration and lysis of adhesions for small bowel obstruction. Patient likely aspirated and has developed ARDS. Since early this morning she has been paralyzed to assist with ventilation. She has been given multiple liters of fluid and has packed red blood cells going now. She has continued to decline and is currently maxed out on Levophed and Tone-Synephrine. She is a DNR. Family is at bedside. Discussed with Dr. Acosta and her ejection fraction was normal. This is likely all ARDS related. Abdomen with no significant change. Urine output still low. We will continue with fluid, pressor support and conservative measures but her prognosis is extremely poor. This has been discussed with the family.
--- NOTE | 2016-09-12 11:34 | Cardiology Consult Note ---
Assessment and Plan (1) ARDS (adult respiratory distress syndrome) Status: Acute Assessment and plan: This may be secondary to her postop situation or aspiration. Current Visit: Yes (2) Shock circulatory Status: Acute Assessment and plan: This does not appear to be cardiac in nature. She will continue supportive care. Current Visit: Yes History of Present Illness - Data of Consult Patient: new to practice Consult date: 09/12/16 Requesting Physician: Skyler Teague - Consult Narrative Reason for consult: Hypotension and abnormal chest x-ray History of present illness: Ms. Hart is a 75 year old female who yesterday underwent surgery for small bowel obstruction with exploratory laparotomy and lysis of adhesions and reduced umbilical hernia. Postprocedure the patient deteriorated again hypotensive with progressive chest x-ray abnormalities. Chest x-ray was read as cardiac decompensation. On review of the chest x-ray this may actually be origins. It may also represent diffuse aspiration pneumonia. Her echocardiogram reveals normal left ventricular size and function without any abnormalities. Right-sided chambers are normal size and function. There is no evidence of acute elevation of right-sided pressures and decompensation. There is no pericardial effusion. The patient is requiring multiple pressors at this time. In discussion with her family she has never had any kind of cardiac diagnoses or symptomatology. Her history is somewhat limited since the course the patient is intubated at this time. CC: Silver Brown III., - Home Medications and Allergies Home Medications: Home Medications Medication Instructions Recorded Confirmed Type Levothyroxine Tab [Synthroid Tab] 25 mcg PO DAILY@0700 04/28/16 09/09/16 History Losartan [Cozaar] 50 mg PO QAM 04/28/16 09/09/16 History Omeprazole 20 mg PO QAM 04/28/16 09/09/16 History Solifenacin [Vesicare] 5 mg PO QAM 04/28/16 09/09/16 History levETIRAcetam [Levetiracetam] 250 mg PO QAM 04/28/16 09/09/16 History Fluticasone 50 Mcg Nasal [place] 1 spray BOTH NARES DAILY 09/09/16 09/09/16 History [Flonase Nasal [place]] Levocetirizine Dihydrochloride 5 mg PO QAM 09/09/16 09/09/16 History Allergies/Adverse Reactions: Allergies Allergy/AdvReac Type Severity Reaction Status Date / Time No Known Allergies Allergy Verified 04/28/16 15:59 ROS unobtainable: due to endotracheal tube Medical,Surgical,& Family Hx - Medical History Cardio: History of: Hypertension Psychological: History of: Depression Neurology: History of: Seizures HEENT: History of: Eye Problem (glasses) Respiratory: History of: Bronchitis Genitourinary: History of: Recurring Urinary Tract Infections Gastrointestinal: History of: Bowel Obstruction (small bowel obstruction), GERD , Gastrointestinal Cancer (colon ca-remission) Other: History of: Cancer (colon cancer) - Surgical History HEENT Surgeries: Surgical HX of: Eye Surgery (cataract surgery two years ago), Thyroid Surgery (glands removed) Abdominal Surgeries: Surgical HX of: Abdominal Surgery (colectomy--colostomy) Reproductive Surgeries: Surgical HX of;: Tubal Ligation - Family History Family History: Reports;: Family Cancer (father and sister), Family Hypertension (mother) - Social History Smoking Status: Never smoker Frequency of Alcohol Use: None Type of Drug Use: None Physical Examination Vital Signs Temp Pulse Resp BP Pulse Ox 98.1 F 109 H 20 107/87 96 09/09/16 13:37 09/09/16 13:37 09/09/16 13:37 09/09/16 13:37 09/09/16 13:37 Other: General: The patient is intubated on mechanical ventilation with NG tube. She is sedated and unresponsive. HEENT: Atraumatic but is orally intubated with NG tube nasally. Neck: Trachea midline. Lungs: Coarse breath sounds anteriorly few rhonchi and few crackles. She is being mechanically ventilated. Cardiovascular: Very distant heart sounds but rhythm is regular no gross murmur. Abdomen: She is post op. Extremities: Edematous and cool. Neurologic: Patient is unresponsive Result/EKG - Labs CBC & BMP: 09/12/16 02:16 09/12/16 02:16 Lab Results: I have reviewed the past 24 hour labs Labs: Laboratory Results - last 24 hr 09/11/16 09/11/16 09/11/16 15:34 18:45 19:13 WBC RBC Hgb Hct MCV MCH MCHC RDW Plt Count MPV Neut % (Auto) Lymph % (Auto) [place] % (Auto) Eos % (Auto) Baso % (Auto) Neut # (Auto) Lymph # (Auto) [place] # (Auto) Eos # (Auto) Baso # (Auto) Total Counted Immature Gran % Nucleated RBC % Immature Gran # Segmented Neutrophils Band Neutrophils Lymphocytes Monocytes Metamyelocytes Myelocytes Nucleated RBCs # Platelet Estimate Anisocytosis ABG pH 7.256 L ABG pCO2 56.3 H ABG pO2 115.3 H ABG HCO3 24.5 ABG Total CO2 26.2 ABG O2 Saturation 97.2 ABG Base Excess -3.0 L FiO2 70.00 Sodium Potassium Chloride Carbon Dioxide Anion Gap BUN Creatinine GFR Calculation BUN/Creatinine Ratio Glucose POC Glucose 251 H Calculated Osmolality Calcium Magnesium Total Creatine Kinase CK-MB (CK-2) Troponin I Urine Color Kesha Urine Appearance Clear Urine pH 6.0 Ur Specific [place] 1.021 Urine Protein 30 Urine Glucose (UA) Negative Urine Ketones Negative Urine Blood Negative Urine Nitrate Negative Urine Bilirubin Negative Urine Urobilinogen < 2.0 H Urine Leukocytes Negative Urine RBC 2 Urine WBC 2 Ur Squamous Epith Cells Occasional Urine Mucus Occasional Urine Yeast (Budding) Occasional Ur Culture Indicated? Not indicated Blood Type Antibody Screen Crossmatch 09/11/16 09/11/16 09/11/16 19:23 20:20 23:16 WBC RBC Hgb 10.2 L 10.3 L Hct 32.3 L 32.8 L MCV MCH MCHC RDW Plt Count MPV Neut % (Auto) Lymph % (Auto) [place] % (Auto) Eos % (Auto) Baso % (Auto) Neut # (Auto) Lymph # (Auto) [place] # (Auto) Eos # (Auto) Baso # (Auto) Total Counted Immature Gran % Nucleated RBC % Immature Gran # Segmented Neutrophils Band Neutrophils Lymphocytes Monocytes Metamyelocytes Myelocytes Nucleated RBCs # Platelet Estimate Anisocytosis ABG pH 7.242 L ABG pCO2 53.6 H ABG pO2 78.5 L ABG HCO3 22.6 ABG Total CO2 24.2 ABG O2 Saturation 93.1 L ABG Base Excess -4.9 L FiO2 60.00 Sodium Potassium Chloride Carbon Dioxide Anion Gap BUN Creatinine GFR Calculation BUN/Creatinine Ratio Glucose POC Glucose Calculated Osmolality Calcium Magnesium Total Creatine Kinase CK-MB (CK-2) Troponin I Urine Color Urine Appearance Urine pH Ur Specific [place]za Urine Protein Urine Glucose (UA) Urine Ketones Urine Blood Urine Nitrate Urine Bilirubin Urine Urobilinogen Urine Leukocytes Urine RBC Urine WBC Ur Squamous Epith Cells Urine Mucus Urine Yeast (Budding) Ur Culture Indicated? Blood Type Antibody Screen Crossmatch 09/11/16 09/11/16 09/12/16 23:16 23:42 00:28 WBC RBC Hgb Hct MCV MCH MCHC RDW Plt Count MPV Neut % (Auto) Lymph % (Auto) [place] % (Auto) Eos % (Auto) Baso % (Auto) Neut # (Auto) Lymph # (Auto) [place] # (Auto) Eos # (Auto) Baso # (Auto) Total Counted Immature Gran % Nucleated RBC % Immature Gran # Segmented Neutrophils Band Neutrophils Lymphocytes Monocytes Metamyelocytes Myelocytes Nucleated RBCs # Platelet Estimate Anisocytosis ABG pH ABG pCO2 ABG pO2 ABG HCO3 ABG Total CO2 ABG O2 Saturation ABG Base Excess FiO2 Sodium Potassium Chloride Carbon Dioxide Anion Gap BUN Creatinine GFR Calculation BUN/Creatinine Ratio Glucose POC Glucose 140 H 107 H Calculated Osmolality Calcium Magnesium Total Creatine Kinase 68 D CK-MB (CK-2) 1.4 Troponin I 0.018 Urine Color Urine Appearance Urine pH Ur Specific [place]za Urine Protein Urine Glucose (UA) Urine Ketones Urine Blood Urine Nitrate Urine Bilirubin Urine Urobilinogen Urine Leukocytes Urine RBC Urine WBC Ur Squamous Epith Cells Urine Mucus Urine Yeast (Budding) Ur Culture Indicated? Blood Type Antibody Screen Crossmatch 09/12/16 09/12/16 09/12/16 01:30 02:16 02:16 WBC 2.6 L RBC 3.07 L Hgb 8.3 L D Hct 26.9 L MCV 87.6 MCH 27 MCHC 30.9 L RDW 16.0 Plt Count 160 MPV 10.3 Neut % (Auto) 72.5 Lymph % (Auto) 16.0 L [place] % (Auto) 3.1 Eos % (Auto) 0.0 Baso % (Auto) 0.0 Neut # (Auto) 1.9 Lymph # (Auto) 0.4 L [place] # (Auto) 0.1 L Eos # (Auto) 0.0 Baso # (Auto) 0.0 Total Counted 100 Immature Gran % 8.4 Nucleated RBC % 1.1 Immature Gran # 0.22 Segmented Neutrophils 28 L Band Neutrophils 36 H Lymphocytes 15 L Monocytes 8 Metamyelocytes 4 Myelocytes 9 Nucleated RBCs # 0.03 Platelet Estimate Adequate Anisocytosis 1+ ABG pH 7.198 L* ABG pCO2 57.9 H ABG pO2 87.1 ABG HCO3 22.0 ABG Total CO2 23.8 ABG O2 Saturation 94.7 L ABG Base Excess -6.0 L FiO2 60.00 Sodium 139 Potassium 3.5 Chloride 106 Carbon Dioxide 21 Anion Gap 15.5 H BUN 17 Creatinine 1.00 GFR Calculation 54 BUN/Creatinine Ratio 17.00 Glucose 134 H POC Glucose Calculated Osmolality 280.5 Calcium 7.2 L Magnesium 1.4 L Total Creatine Kinase CK-MB (CK-2) Troponin I Urine Color Urine Appearance Urine pH Ur Specific [place] Urine Protein Urine Glucose (UA) Urine Ketones Urine Blood Urine Nitrate Urine Bilirubin Urine Urobilinogen Urine Leukocytes Urine RBC Urine WBC Ur Squamous Epith Cells Urine Mucus Urine Yeast (Budding) Ur Culture Indicated? Blood Type Antibody Screen Crossmatch 09/12/16 09/12/16 09/12/16 05:27 06:35 09:11 WBC RBC Hgb Hct MCV MCH MCHC RDW Plt Count MPV Neut % (Auto) Lymph % (Auto) [place] % (Auto) Eos % (Auto) Baso % (Auto) Neut # (Auto) Lymph # (Auto) [place] # (Auto) Eos # (Auto) Baso # (Auto) Total Counted Immature Gran % Nucleated RBC % Immature Gran # Segmented Neutrophils Band Neutrophils Lymphocytes Monocytes Metamyelocytes Myelocytes Nucleated RBCs # Platelet Estimate Anisocytosis ABG pH 7.244 L ABG pCO2 48.3 H ABG pO2 55.2 L ABG HCO3 19.1 L ABG Total CO2 20.1 L ABG O2 Saturation 84.8 L ABG Base Excess -6.2 L FiO2 70.00 Sodium Potassium Chloride Carbon Dioxide Anion Gap BUN Creatinine GFR Calculation BUN/Creatinine Ratio Glucose POC Glucose 159 H Calculated Osmolality Calcium Magnesium Total Creatine Kinase CK-MB (CK-2) Troponin I Urine Color Urine Appearance Urine pH Ur Specific [place] Urine Protein Urine Glucose (UA) Urine Ketones Urine Blood Urine Nitrate Urine Bilirubin Urine Urobilinogen Urine Leukocytes Urine RBC Urine WBC Ur Squamous Epith Cells Urine Mucus Urine Yeast (Budding) Ur Culture Indicated? Blood Type O POSITIVE Antibody Screen Negative Crossmatch See Detail 09/12/16 Unknown WBC RBC Hgb Hct MCV MCH MCHC RDW Plt Count MPV Neut % (Auto) Lymph % (Auto) [place] % (Auto) Eos % (Auto) Baso % (Auto) Neut # (Auto) Lymph # (Auto) [place] # (Auto) Eos # (Auto) Baso # (Auto) Total Counted Immature Gran % Nucleated RBC % Immature Gran # Segmented Neutrophils Band Neutrophils Lymphocytes Monocytes Metamyelocytes Myelocytes Nucleated RBCs # Platelet Estimate Anisocytosis ABG pH ABG pCO2 ABG pO2 ABG HCO3 ABG Total CO2 ABG O2 Saturation ABG Base Excess FiO2 Sodium Potassium Chloride Carbon Dioxide Anion Gap BUN Creatinine GFR Calculation BUN/Creatinine Ratio Glucose POC Glucose Calculated Osmolality Calcium Magnesium Total Creatine Kinase CK-MB (CK-2) Troponin I Urine Color Urine Appearance Urine pH Ur Specific [place] Urine Protein Urine Glucose (UA) Urine Ketones Urine Blood Urine Nitrate Urine Bilirubin Urine Urobilinogen Urine Leukocytes Urine RBC Urine WBC Ur Squamous Epith Cells Urine Mucus Urine Yeast (Budding) Ur Culture Indicated? Blood Type O POSITIVE Antibody Screen Crossmatch - Impressions Impressions: ECG from yesterday reveals sinus tachycardia without acute changes. Specialty Discharge - Follow Up or Referrals Follow up with: Silver Brown III., MD [Physician] -
--- NOTE | 2016-09-14 09:21 | Physician Query Form ---
CLICK EDIT DOCUMENT TO SELECT QUERY ANSWER --> OK --> SIGN Bonnie Moulton RN Clinical Dumper W) [phone] (f) [phone] [email or web address]: Make your selection(s) from the choices in EACH section by typing an "x" and enter comments in the comment section. Please use your independent medical judgment in providing your response. This request does not imply that any particular answer is desired or expected. CLINICAL INDICATORS: (Providers should not edit this section) Based on documentation of Creatinine from 1.6 to 0.8. GFR form 30 to 67. Treated with NS bolus. Monitored by serial lab checks. Clarify which of the following most accurately represents the patient's renal status: ( ) Acute kidney injury (non-traumatic) ( ) Acute renal failure ( ) Acute renal failure with underlying Chronic Kidney Disease (CKD) - please provide stage below ( ) Acute renal failure with pathological renal lesion ( ) Acute renal failure with necrosis ( ) tubular ( ) medullary ( ) cortical ( ) CKD - please provide stage below ( ) End Stage Renal Disease ( ) Acute interstitial nephritis ( ) Hepatorenal syndrome ( ) Other, please specify: ( ) Clinically unable to determine Chronic Kidney Disease Stages Source: National Kid[employer] ( ) Stage I (eGFR > or = 90) ( ) Stage II (eGFR 60 - 89) ( ) Stage III (eGFR 30 - 59) ( ) Stage IV (eGFR 15 - 29) ( ) Stage V (eGFR < 15 or dialysis) COMMENTS: PLEASE ALSO DOCUMENT RESPONSE IN PROGRESS NOTES AND/OR DISCHARGE SUMMARY Use of terms such as suspected, likely, or probable (associated with a specific diagnosis that is being evaluated, monitored, or treated as if it exists) are acceptable and can be restated in the discharge summary if not ruled out. MTDD
--- NOTE | 2016-09-14 09:28 | Physician Query Form ---
CLICK EDIT DOCUMENT TO SELECT QUERY ANSWER --> OK --> SIGN Bonnie Moulton RN Clinical Sample Tester W) [phone] (f) [phone] [email or web address]: Make your selection(s) from the choices in EACH section by typing an "x" and enter comments in the comment section. Please use your independent medical judgment in providing your response. This request does not imply that any particular answer is desired or expected. CLINICAL INDICATORS: (Providers should not edit this section) Based on documentation of "Acute circulatory shock" Treated with pressors and fluid resuscitation. "Cardiac decompensation" BNP 18. NS bolus. D5 LR infusion, and LR bolus. Please check all that will clarify the Acute circulatory shock Please clarify which, if any, of the following is the etiology of the above symptoms and treatment rendered: ( ) Hypovolemic shock ( ) Septic shock ( ) Cardiogenic shock ( ) Hemorrhagic shock ( ) Traumatic shock ( ) Shock due to, please specify etiology: ( ) Shock, unknown etiology ( ) Drug induced, please specify substance: ( ) Iatrogenic Hypotension ( ) Orthostatic Hypotension ( ) Hypotension, unknown etiology ( ) Other, please specify: ( ) Clinically unable to determine COMMENTS: PLEASE ALSO DOCUMENT RESPONSE IN PROGRESS NOTES AND/OR DISCHARGE SUMMARY Use of terms such as suspected, likely, or probable (associated with a specific diagnosis that is being evaluated, monitored, or treated as if it exists) are acceptable and can be restated in the discharge summary if not ruled out. MTDD
--- NOTE | 2016-10-11 14:47 | Discharge Summary ---
Hospital Course - Hospital Course Hospital Course: Admitted with SBO and underwent repair. Developed ARDS and . See records for details. - Cause of Cause of : ARDS Diagnosis - Discharge Diagnosis (1) Small bowel obstruction Status: Acute Specialty Discharge - Follow Up or Referrals Follow up with: Silver Brown III., MD [Physician] - Discharge Plan - Discharge Data Disposition: - Discharge Medications No Action Solifenacin [Vesicare] 5 mg PO QAM Levothyroxine Tab [Synthroid Tab] 25 mcg PO DAILY@0700 Levocetirizine Dihydrochloride 5 mg PO QAM Omeprazole 20 mg PO QAM levETIRAcetam [Levetiracetam] 250 mg PO QAM Losartan [Cozaar] 50 mg PO QAM Fluticasone 50 Mcg Nasal [place] [Flonase Nasal [place]] 1 spray BOTH NARES DAILY - Follow Up or Referral Follow Up: Silver Brown III., MD [Physician] - - Forms/Instructions Instructions: Bowel Obstruction (DC) DS: Provider Date of admission: 09/09/16 15:23 Primary care physician: Henok Pittman Attending physician on admission: Silver Brown III., Consults: 09/10/16 09:57 Consult to Dietitian [CONS] Routine Reason for Dietitian: TPN/PPN-Initiate/Manage 09/11/16 19:00 Consult to Physician [CONS] Routine Comment: Consulting Provider: Karen Smith When should Consulting Provider be notified: Now 09/12/16 09:11 Consult to Physician [CONS] Routine Comment: Consulting Provider: Ajit Acosta When should Consulting Provider be notified: Now Consult to Specialist Group: Cardiology When should Consulting Provider be notified: Now Person Notified: Dr Acosta Date Notified: 09/12/16 Time Notified: 09:12 Consult Notification Comment: notified of consult Discharging clinician: Skyler Teague MD
== END 2016-09-12 12:22 | disposition expired | DRG 336 ==
LOC: N.ED 13:27 → N.EDINP 15:23 → N.3E 16:13 → N.ICU 09-11 17:54
PROVIDERS: ADMIT Surgery; ATTEND Surgery